=== PATIENT | female | born 1960 | race Caucasian/White ===

== ENCOUNTER 2019-11-04 18:00 | Emergency (ER) | payer MEDICAID, OTHER ==
[~2019-11-04] VITALS: Ht 157.5 cm; Wt 126.3 kg
[~2019-11-04 18:00] MED LIST: FERR325E14 PO; LISI40TA4 PO; ORE25 PO
[2019-11-04 18:07] VITALS: BP 204/92
--- NOTE | 2019-11-04 18:31 | NUR ---
PATIENT AMBULATED TO BED 1.
--- NOTE | 2019-11-04 18:34 | NUR ---
59/F BIB DAUGHTER C/O BELLY BUTTON BLEEDING & ABDOMINAL PAIN X 3 DAYS. BP 204/92 AT THIS TIME. DENIES HEADACHE OR DIZZINESS AT THIS TIME. MED HX: HTN. MED: NONE.ABDOMEN SOFT. PATIENT STATES ABDOMINAL PAIN PAIN OF 4/10 AT THIS TIME. PATIENT POSITIONED FOR COMFORT; HOB ELEVATED; BEDRAILS UP X1; BED DOWN. ER MD MADE AWARE OF PT STATUS.
[2019-11-04 19:09] LABS: BASOPHILS % (AUTO) 0.5 % (0.0-2.0); EOSINOPHILS # (AUTO) 0.1 K/uL (0-0.4); EOSINOPHILS % (AUTO) 2.1 % (0.0-4.0); HEMATOCRIT 36.6 % (36-48); HEMOGLOBIN 11.6 g/dL (12.0-16.0); LYMPHOCYTES # (AUTO) 2.1 K/uL (2.5-16.5); LYMPHOCYTES % (AUTO) 30.1 % (20.5-51.1); MEAN CORPUSCULAR HEMOGLOBIN 27 pg (27-31); MEAN CORPUSCULAR HGB CONC 32 g/dL (33-37); MEAN CORPUSCULAR VOLUME 85.7 fL (80-94); MONOCYTES # (AUTO) 0.5 K/uL (0.8-1.0); MONOCYTES % (AUTO) 6.9 % (1.7-9.3); NEUTROPHILS # (AUTO) 4.3 K/uL (1.8-7.7); NEUTROPHILS % (AUTO) 60.4 % (42.2-75.2); PLATELET COUNT (AUTO) 198 K/uL (140-450); RED BLOOD CELL COUNT(AUTO) 4.27 MIL/uL (4.20-5.40); WHITE BLOOD COUNT (AUTO) 7.1 K/uL (4.8-10.8)
[2019-11-04 19:21] LABS: ALBUMIN 3.4 g/dL (3.4-5.0); CARBON DIOXIDE 26.8 mmol/L (21-32); CREATININE 0.9 mg/dL (0.6-1.3); POTASSIUM 3.8 mmol/L (3.5-5.1); TOTAL BILIRUBIN 0.5 mg/dL (0.0-1.0)
[2019-11-04] MEDS ORDERED: INTUBATION KIT MC ONE (19:26)
--- NOTE | 2019-11-04 19:36 | NUR ---
RECEIVED REPORT FROM RAYNA ROSAS
--- NOTE | 2019-11-04 20:03 | NUR ---
PT TAKEN TO CT VIA ANGUS
--- NOTE | 2019-11-04 20:27 | NUR ---
Note michelle in [facility] - 11/04/19 at 2027 by [email or web address] PT RETURNED FROM. Addendum: 11/04/19 at 2026 by [email or web address] Willam martinez in [facility] - 11/04/19 at 2027 by [email or web address] PT RETURNED FROM CT
--- NOTE | 2019-11-04 20:28 | NUR ---
PT RETURNED FROM CT
[2019-11-04 21:39] VITALS: BP 179/73
== END 2019-11-04 21:45 | disposition home or self-care (01) ==
LOC: MED 18:00
DX: K42.9 Umbilical hernia without obstruction or gangrene (principal); I10 Essential (primary) hypertension; Z79.899 Other long term (current) drug therapy; Z98.890 Other specified postprocedural states
CPT/HCPCS: 36415; 74177; 80053; 81002; 83605; 85025; 87040; 99285; Q9967